=== PATIENT | male | born 1995 | race Caucasian/White ===

== ENCOUNTER → 2016-09-28 | Outpatient (CLI) | payer BC ==
--- NOTE | 2016-09-28 10:00 | RAD ---
HISTORY: Neck pain Study: Cervical spine three view Comparison: None Findings: The prevertebral soft tissues are normal. The alignment is normal. The vertebral bodies are of avera ge height. The disc spaces are preserved. The posterior elements are intact. The joints are normal. IMPRESSION: No significant abnormality Reported By:
--- NOTE | 2016-09-28 10:02 | RAD ---
HISTORY: Back pain Study: Lumbar spine three view Comparison: None Findings: There appears to be slight anterolisthesis L5 on S1 which could be due to bilateral spondylolysis at L5. This could be confirmed with CT. The alignment is otherwise normal. The vertebral bodies are of average height. The disc spaces are preserved. The pedicles are intact. The SI joints are normal. IMPRESSION: Slight anterolisthesis L5 on S1 possibly due to bilateral spondylolysis at L5. This could be confirm ed with CT. Reported By:
--- NOTE | 2016-09-28 10:05 | RAD ---
HISTORY: Back pain, scoliosis Study: AP and lateral thoracic spine Comparison: None Findings: There is minimal dextroscoliosis convex T6-7. The alignment is otherwise normal. The vertebral elizabeth s are of average height. The disc spaces are preserved. The pedicles are intact. The paraspinous sof t tissues are normal. IMPRESSION: Minimal dextroscoliosis Reported By:
== END | disposition home or self-care (01) ==
LOC: RAD 08:45
PROVIDERS: ATTEND Nurse Practitioner Family
DX: M54.89 Other dorsalgia (principal); M41.84 Other forms of scoliosis, thoracic region; M43.17 Spondylolisthesis, lumbosacral region
CPT/HCPCS: 72040; 72072; 72100

== ENCOUNTER 2016-10-05 01:19 | Emergency (ER) | payer BC ==
[2016-10-05 01:26] VITALS: BP 132/77; BMI 21.8
--- NOTE | 2016-10-05 01:50 | DR.GENAD ---
HPI - PCP Primary Care Physician: EAN - HPI Comment HPI Comment: PAIN WORSE TONIGHT. NO DYSURIA. NO FEVER. NO N/V/D. - Complaint/Symptoms Chief Complaint Doctors Comments: PAIN LOWER BACK AND RIGHT GROIN FOR ONE WEEK. Chief Complaint:: PAIN IN STOMACH LOW BACK AND GROIN - Nurses notes reviewed Nurses Notes Review: Yes - Source History Provided: Patient - Mode of Arrival Mode of Arrival: Ambulatory - Timing Onset of Chief Complaint: 09/28/16 Came on: Suddenly - Duration Duration: Constant Duration: Days - Severity Severity: Moderate PMH - PMH Past Medical History: No Past Surgical History: Yes Surgical History: Ortho Surgery Past Surgical History Comment: KNEE AND SHOULDER - Family History History of Family Medical Conditions: Yes Family Medical History: Hypertension - Social History Does patient currently use any type of tobacco product: No Have you used tobacco products in the last 12 months: No Type of Tobacco Use: None Does any household member use tobacco: No Alcohol Use: None Do you use any recreational Drugs:: No Lives With: Family Lives Where: Home - infectious screening In the last 2 months have you had wt loss of >10#?: NO Have you had fever, night sweats or hemotysis?: No Have you traveled outside the country in the last 6 months?: No Isolation: Standard ROS - Review of Systems Constitutional: No Symptoms Reported. negative: Chills, Fever, Weakness, Fatigue Eyes: No Symptoms Reported. negative: Eye Pain, Discharge ENTM: No Symptoms Reported. negative: Ear Pain, Nose Discharge, Nose Congestion , Throat Pain Respiratoy: No Symptoms Reported. negative: Productive Cough, Short of Breath, Wheezing, Hemoptysis Cardiovascular: No Symptoms Reported. negative: Chest Pain Gastrointestinal/Abdominal: Abdominal Pain. negative: Diarrhea, Nausea, Vomiting Genitourinary: negative: Dysuria, Hematuria Neurological: No Symptoms Reported. negative: Headache, Weakness, Dizziness Musculoskeletal: Muscle Pain Integumentary: No Symptoms Reported. negative: Change in Color Hematologic/Lymphatic: No Symptoms Reported Endocrine: No Symptoms Reported All Other Systems: Reviewed and Negative PE - Vital Signs Vitals: Temperature 98.9 F Pulse Rate 73 Respiratory Rate 16 Blood Pressure 132/77 O2 Sat by Pulse Oximetry 99 - General Limitations: No Limitations General Appearance: Alert - Head Head Exam: Normal Inspection - Eyes Eye exam: Normal Appearance - ENT ENT Exam: Normal External Ear Exam External Ear Exam: Normal External Inspection TM/Canal Exam: Bilateral Normal Nose Exam: Normal Nose Exam, Sinus Tenderness Mouth Exam: Normal Inspection Throat Exam: Normal Inspection - Neck Neck Exam: Trachea Midline - Chest Chest Inspection: Symmetric Chest Wall Rise - Respiratory Respiratory Exam: Normal Lung Sounds Bilat Respiratory Exam: Bilateral Clear to Auscultation - Cardiovascular Cardiovascular Exam: Regular Rate, Normal Rhythm, Normal Heart Sounds - Abdominal Exam Abdominal Exam: Normal Bowel Sounds, Soft, Tenderness. negative: Distention - Extremities Extremities Exam: Normal Inspection - Back Back Exam: Normal Inspection - Neurologic Neurological Exam: Alert, Oriented X3 - Psychiatric Psychiatric Exam: Normal Affect, Normal Mood - Skin Skin Exam: Normal Color MDM - Additional Information Additional Information Obtained From: Family - Differential Diagnosis Differential Diagnosis: UTI, KIDNEY STONE Course - Treatment Treatment: SEE ORDERS. - Education/Counseling Education/Counseling: Patient, Family, Education Educated On: Diagnosis, Needs for Follow Up ROR - Labs Reviewed Laboratory Results Reviewed?: Yes Laboratory: Specimen Type Clean catch urine 10/05/16 02:05 Urine Color Yellow (YELLOW) 10/05/16 02:05 Urine Appearance Clear (CLEAR) 10/05/16 02:05 Urine pH 5.0 (5.0 - 8.0) 10/05/16 02:05 Ur Specific [place] 1.030 (1.000-1.030) 10/05/16 02:05 Urine Protein Negative (NEGATIVE) 10/05/16 02:05 Urine Glucose (UA) Negative (NEGATIVE) 10/05/16 02:05 Urine Ketones Negative (NEGATIVE) 10/05/16 02:05 Urine Occult Blood Negative (NEGATIVE) 10/05/16 02:05 Urine Nitrite Negative (NEGATIVE) 10/05/16 02:05 Urine Bilirubin Negative (NEGATIVE) 10/05/16 02:05 Urine Urobilinogen Normal (NORMAL) 10/05/16 02:05 Ur Leukocyte Esterase Negative (NEGATIVE) 10/05/16 02:05 Urine RBC None seen /HPF (NEGATIVE) 10/05/16 02:05 Urine WBC None seen /HPF (NEGATIVE) 10/05/16 02:05 Ur Squamous Epith Cells Rare /HPF (NEGATIVE) 10/05/16 02:05 Urine Bacteria Negative /HPF (NEGATIVE) 10/05/16 02:05 Ur Culture Indicated? No/not indicated 10/05/16 02:05 - Diagnosis Discharge Problem: Right groin pain Lower back pain Qualifiers: Chronicity: acute Back pain laterality: bilateral Sciatica presence: without sciatica Qualified Code(s): M54.5 - Low back pain - Discharge Plan Condition: Stable Prescriptions: Ibuprofen [Motrin Tab 800 mg] 800 mg PO Q8H PRN #20 tab PRN Reason: Pain/Inflammation - Follow ups/Referrals Follow ups/Referrals: ALE MCKOY [Primary Care Provider] - 1 day - Instructions Instructions: Back Pain, Adult, [id number], Groin Strain Additional Instructions: RETURN TO ED IF WORSE.
[2016-10-05 02:10] LABS: BILIRUBIN,URINE NEGATIVE (NEGATIVE); BLOOD/HEMOGLOBIN,URINE NEGATIVE (NEGATIVE); GLUCOSE, URINE NEGATIVE (NEGATIVE); KETONES,URINE NEGATIVE (NEGATIVE); LEUKOCYTE ESTERASE ,URINE NEGATIVE (NEGATIVE); NITRITES,URINE NEGATIVE (NEGATIVE); PROTEIN,URINE NEGATIVE (NEGATIVE); UROBILINOGEN,URINE NORMAL (NORMAL)
[2016-10-05 02:18] LABS: APPEARANCE,URINE CLEAR (CLEAR); BACTERIA,URINE NEGATIVE /HPF (NEGATIVE); COLOR,URINE YELLOW (YELLOW); RBC,URINE NONE SEEN /HPF (NEGATIVE); SQUAMOUS EPITHELIAL CELL,UR RARE /HPF (NEGATIVE)
--- NOTE | 2016-10-05 03:15 | CT ---
CT abdomen and pelvis without contrast Indication: Lower back pain stomach pain groin pain. Technique: Helical images through the abdomen and pelvis without contrast. Coronal and sagittal refo rmats provided. Findings: Limited images through lower chest shows no acute abnormality. Review of bone windows show s no destructive osseous lesion. Lower lumbar spine degenerative changes noted with pars defects at L5 with slight anterolisthesis of L5 on S1. Abdomen: Within limits of a noncontrast study, the stomach, gallbladder, liver, spleen, pancreas, ad renal glands and small bowel show no acute abnormality. Moderate stool seen in the colon. The append ix is normal. No acute colonic abnormality seen. Vasculature is free of plaque. The kidneys show no stone or hydroureteronephrosis. Pelvis: Urinary bladder and rectum show no acute abnormality. Prostate gland is normal. Impression: 1. No renal stone or hydronephrosis. 2. Moderate stool in the colon suggesting constipation. 3. Pars defects at L5. Reported By:
[2016-10-05] MEDS ORDERED: TORADOL TAB PO ONE ×2 (03:30→03:32)
== END 2016-10-05 03:35 | disposition home or self-care (01) ==
LOC: ER 01:19
DX: R10.84 Generalized abdominal pain (principal); M54.5 Low back pain
CPT/HCPCS: 74176; 81001; 99282

== ENCOUNTER 2017-12-23 22:32 | Observation (INO) ==
[2017-12-23] MEDS ORDERED: ASPIRIN PO ONE (23:14)
[2017-12-23] MEDS ORDERED: ASPIRIN ONE (23:19)
--- NOTE | 2017-12-23 23:33 | RAD ---
AP chest. Indication: Chest pain with numbness Findings: The heart size is normal. Trachea is midline. No focal airspace opacity, pleural effusion o r pneumothorax. No acute osseous abnormality. Impression: No acute cardiopulmonary abnormality or change from prior exam. Reported By:
[2017-12-23 23:41] LABS: BASOPHILS # (AUTO) 0.1 X10^3/uL (0.0-0.1); BASOPHILS % (AUTO) 1.2 % (0.2-1.0); EOSINOPHILS # (AUTO) 0.4 x10^3/uL (0.0-0.2); EOSINOPHILS % (AUTO) 5.8 % (0.9-2.9); HEMATOCRIT 44.1 % (42.0-54.0); HEMOGLOBIN 15.1 g/dL (13.5-18.0); LYMPHOCYTES # (AUTO) 3.6 X10^3/uL (1.3-2.9); LYMPHOCYTES % (AUTO) 48.9 % (21.0-51.0); MEAN CORPUSCULAR HEMOGLOBIN 30.4 pg (27.0-34.0); MEAN CORPUSCULAR HGB CONC 34.2 g/dL (33.0-35.0); MEAN PLATELET VOLUME 8.3 fL (7.4-11.0); MONOCYTES # (AUTO) 0.7 x10^3/uL (0.3-0.8); MONOCYTES % (AUTO) 9.2 % (0.0-13.0); NEUTROPHILS # (AUTO) 2.6 x10^3/uL (2.2-4.8); NEUTROPHILS % (AUTO) 34.9 % (42.0-75.0); PLATELET COUNT 236 X10^3/uL (150.0-450.0); RED BLOOD COUNT 4.96 X10^6/uL (4.7-6.0); WHITE BLOOD COUNT 7.3 X10^3/uL (3.6-10.0)
[2017-12-23 23:59] LABS: BLOOD UREA NITROGEN 12 mg/dL (7-18); CALCIUM 8.7 mg/dL (8.5-10.1); CARBON DIOXIDE 28.2 mmol/L (21-32); CHLORIDE 105 mmol/L (98-107); CREATININE 0.96 mg/dL (0.70-1.30); SODIUM 141 mmol/L (136-145); TROPONIN I < 0.02 ng/mL (0-1.5); eGFR NON BLACK RACES > 60 (>60)
[2017-12-24 00:03] LABS: ALANINE AMINOTRANSFERASE 26 Units/L (12-78); ALBUMIN 3.8 g/dL (3.4-5.0); ALKALINE PHOSPHATASE 82 Units/L (46-116); ASPARTATE AMINO TRANSFERASE 16 Units/L (15-37); CKMB % 1.1 % (<4); CREATINE KINASE 141 Units/L (39-308); CREATINE KINASE MB 1.5 ng/mL (0-4.0); MAGNESIUM 1.9 mg/dL (1.7-2.9); TOTAL PROTEIN 7.2 g/dL (6.4-8.2)
--- NOTE | 2017-12-24 00:14 | DR.CP ---
HPI Time Seen Time seen: 23:20 PCP Primary Care Physician: ALE MCKOY Complaint Chief Complaint Doctor Comments: A agree with statement as written. Patient admits to left sided chest pain for the past couple of months. The present pain has a duration of two hours with radiating down left arm w/o diaphoresis. Pain score is 8. His job consist of making wiring harnesses. He denies smoking or use of alcohol. Negative family history of heart disease. Chief Complaint:: LEFT SIDED CHEST PAIN, LEFT ARM NUMBNESS O/S 2200. PATIENT STATES, "I HAVE BEEN HAVING CHEST PAIN FOR THE LAST COUPLE OF MONTHS." I INQUIRED IF HE HAS SEEN PCP, "NO." I INQUIRED WHY IS THE CHEST PAIN DIFFERENT TONIGHT? "BC MY LEFT ARM WENT NUMB." PATIENT ADMITS TO CHEST PAIN WITH INSPIRATION. PATIENT TENDER PER PALPITATION OF CHEST WALL. PATIENT ADMITS TO C/C /C FOR LAST 3 DAYS. PATIENT DENIES ANY SOB, N/V. Self Treatment fo Chief Complaint: NONE Source History Provided: Patient Mode of Arrival Mode of Arrival: Ambulatory Timing Onset of Chief Complaint: 12/23/17 Location Chest Pain Radiation Location: Left Arm Associated Signs and Symptoms Associated Signs and Symptoms: Other PMH PMH Past Medical History: No Past Surgical History: Yes Surgical History: Ortho Surgery Past Surgical History Comment: ORTHO SURGERY RT SHOULDER, LT KNEE Family History History of Family Medical Conditions: Yes Family Medical History: Hypertension Social History Does patient currently use any type of tobacco product: No Have you used tobacco products in the last 12 months: No Type of Tobacco Use: None Does any household member use tobacco: No Alcohol Use: None Do you use any recreational Drugs:: No Lives Where: Home infectious screening Have you traveled outside the country in the last 6 months?: No Isolation: Standard ROS Review of Systems Constitutional: negative Diaphoresis, Fever, Weakness and Fatigue ENTM: No Symptoms Reported and See HPI; negative Ear Discharge and Nose Pain Respiratoy: No Symptoms Reported and See HPI; negative Non-Productive Cough and Orthopnea Cardiovascular: See HPI; negative Edema and Cyanosis Gastrointestinal/Abdominal: No Symptoms Reported; negative Constipation and Vomiting Genitourinary: No Symptoms Reported Neurological: No Symptoms Reported and Numbness (left upper extremity tonight); negative Seizure, Tingling and Speech Problem Musculoskeletal: See HPI and Chest wall (upper chest wall tenderness to palpation); negative Shoulder and Forearm All Other Systems: Reviewed and Negative PE Vitals Vitals: Temperature 98.1 F Pulse Rate [Apical] 52 Pulse Rate 62 Respiratory Rate 15 Blood Pressure [Left Arm] 120/76 Blood Pressure 126/71 O2 Sat by Pulse Oximetry 99 General Limitations: No Limitations General Appearance: Alert and In No Apparent Distress; negative Anxious and In Distress Head Head Exam: Normal Inspection; negative Atraumatic Eyes Eye exam: Normal Appearance, PERRL and EOMI ENT ENT Exam: Normal Exam, Normal Oropharynx, Normal External Ear Exam, Mucous Membranes Moist and TM's Normal Bilaterally Chest Chest Inspection: Normal Inspection, Symmetric Chest Wall Rise and Tenderness ( anterior upper chest to palpation); negative Rash Respiratory Respiratory Exam: Normal Lung Sounds Bilat and Chest Wall Tenderness (anterior chest wall); negative Accessory Muscle Use and Prolonged Expiratory Phase Respiratory Exam: Bilateral: Clear to Auscultation Cardiovascular Cardiovascular Exam: Regular Rate and Normal Rhythm Pulse: Normal Edema: Normal Abdominal Exam Abdominal Exam: Normal Inspection, Normal Bowel Sounds, Soft, Hyperactive Bowel Sounds, Incision, Bruit and Other; negative Distention, Tenderness, Guarding, Rebound, Rigidity, Dimnished Bowel Sounds, Hypoactive Bowel Sounds, Organomegaly , Trauma, Ascites, Mass, Pulsatile Mass and Hernia Abdominal Tenderness: negative RUQ, RLQ, LUQ, LLQ, Epigastrium, Suprapubic, Diffuse, Mild, Moderate, Severe and Other Extremities Extremities Exam: Normal Inspection, Full ROM and Normal Capillary Refill Back Back Exam: Normal Inspection and Full ROM; negative Tenderness Neurologic Neurological Exam: Alert, Oriented X3, CN II-XII Intact, Normal Gait and Reflexes Normal; negative Motor Sensory Deficit Psychiatric Psychiatric Exam: Normal Affect and Normal Mood Skin Skin Exam: Warm and Normal Color; negative Diaphoresis ROR Labs Reviewed Result Diagrams: 12/23/17 23:27 12/23/17 23:27 Laboratory: WBC 7.3 X10^3/uL (3.6-10.0) 12/23/17 23: RBC 4.96 X10^6/uL (4.7-6.0) 12/23/17 23: Hgb 15.1 g/dL (13.5-18.0) 12/23/17 23: Hct 44.1 % (42.0-54.0) 12/23/17 23: MCV 89.0 fL (80.0-100.0) 12/23/17: MCH 30.4 pg (27.0-34.0) 12/23/17: MCHC 34.2 g/dL (33.0-35.0) 12/23/17: RDW 13.0 % (11.6-16.5) 12/23/17 Plt Count 236 X10^3/uL (150.0-450.0) 12/23/17 MPV 8.3 fL (7.4-11.0) 12/23/17: Neut % (Auto) 34.9 % (42.0-75.0) L 12/23/17: Lymph % (Auto) 48.9 % (21.0-51.0) 12/23/17 [place] % (Auto) 9.2 % (0.0-13.0) 12/23/17 Eos % (Auto) 5.8 % (0.9-2.9) H 12/23/17: Baso % (Auto) 1.2 % (0.2-1.0) H 12/23/17: Neut # (Auto) 2.6 x10^3/uL (2.2-4.8) 12/23/17: Lymph # (Auto) 3.6 X10^3/uL (1.3-2.9) H 12/23/17: [place] # (Auto) 0.7 x10^3/uL (0.3-0.8) 12/23/17 Eos # (Auto) 0.4 x10^3/uL (0.0-0.2) H 12/23/17: Baso # (Auto) 0.1 X10^3/uL (0.0-0.1) 12/23/17 Absolute Nucleated RBC 0.1 /100WBC 12/23/17 INR Target Range - 12/23/17 INR 1.06 (0.8-1.3) 12/23/17 APTT 33.3 SECONDS (22.9-36.5) 12/23/17 23:27 PTT Comment - 12/23/17 23:27
[2017-12-24 00:30] LABS: BILIRUBIN,URINE NEGATIVE (NEGATIVE); BLOOD/HEMOGLOBIN,URINE NEGATIVE (NEGATIVE); GLUCOSE, URINE NEGATIVE (NEGATIVE); KETONES,URINE NEGATIVE (NEGATIVE); LEUKOCYTE ESTERASE ,URINE NEGATIVE (NEGATIVE); NITRITES,URINE NEGATIVE (NEGATIVE); PROTEIN,URINE NEGATIVE (NEGATIVE); UROBILINOGEN,URINE NORMAL (NORMAL)
[2017-12-24 00:36] LABS: APPEARANCE,URINE CLEAR (CLEAR); COLOR,URINE YELLOW (YELLOW)
[2017-12-24] MEDS ORDERED: NS 1000 ML 1,000 ML IV SCH (02:00)
[2017-12-24 03:33] LABS: BASOPHILS # (AUTO) 0.1 X10^3/uL (0.0-0.1); BASOPHILS % (AUTO) 0.8 % (0.2-1.0); EOSINOPHILS # (AUTO) 0.3 x10^3/uL (0.0-0.2); EOSINOPHILS % (AUTO) 4.2 % (0.9-2.9); HEMOGLOBIN 15.1 g/dL (13.5-18.0); LYMPHOCYTES # (AUTO) 2.5 X10^3/uL (1.3-2.9); LYMPHOCYTES % (AUTO) 30.8 % (21.0-51.0); MEAN CORPUSCULAR HEMOGLOBIN 30.7 pg (27.0-34.0); MEAN CORPUSCULAR HGB CONC 34.4 g/dL (33.0-35.0); MEAN CORPUSCULAR VOLUME 89.2 fL (80.0-100.0); MEAN PLATELET VOLUME 8.5 fL (7.4-11.0); MONOCYTES # (AUTO) 0.5 x10^3/uL (0.3-0.8); MONOCYTES % (AUTO) 5.7 % (0.0-13.0); NEUTROPHILS # (AUTO) 4.8 x10^3/uL (2.2-4.8); NEUTROPHILS % (AUTO) 58.5 % (42.0-75.0); PLATELET COUNT 213 X10^3/uL (150.0-450.0); RED BLOOD COUNT 4.92 X10^6/uL (4.7-6.0); RED CELL DISTRIBUTION WIDTH 12.9 % (11.6-16.5); WHITE BLOOD COUNT 8.2 X10^3/uL (3.6-10.0)
[2017-12-24 03:45] VITALS: BMI 21.3
[2017-12-24 03:45] LABS: ALANINE AMINOTRANSFERASE 25 Units/L (12-78); ALBUMIN 3.7 g/dL (3.4-5.0); ALKALINE PHOSPHATASE 78 Units/L (46-116); ASPARTATE AMINO TRANSFERASE 19 Units/L (15-37); BLOOD UREA NITROGEN 14 mg/dL (7-18); CALCIUM 8.7 mg/dL (8.5-10.1); CARBON DIOXIDE 29.2 mmol/L (21-32); CHLORIDE 105 mmol/L (98-107); CREATININE 0.98 mg/dL (0.70-1.30); SODIUM 140 mmol/L (136-145); eGFR NON BLACK RACES > 60 (>60)
[2017-12-24 03:58] LABS: CHOL/HDL RATIO 2.9 (0.0-5.0); CHOLESTEROL 136 mg/dL (0-200); CKMB % 1.3 % (<4); CREATINE KINASE 112 Units/L (39-308); CREATINE KINASE MB 1.5 ng/mL (0-4.0); HDL CHOLESTEROL 47 mg/dL (40-60); TRIGLYCERIDES 46 mg/dL (0-150); TROPONIN I < 0.02 ng/mL (0-1.5)
[2017-12-24 08:07] LABS: CKMB % 1.6 % (<4); CREATINE KINASE 94 Units/L (39-308); CREATINE KINASE MB 1.5 ng/mL (0-4.0); TROPONIN I < 0.02 ng/mL (0-1.5)
[2017-12-24 08:39] VITALS: BP 114/65
--- NOTE | 2018-01-26 11:55 | DR.CP ---
HPI Time Seen Time seen: 22:50 PCP Primary Care Physician: SHELDON Anand Complaint Chief Complaint:: LEFT SIDED CHEST PAIN, LEFT ARM NUMBNESS O/S 0. PATIENT STATES, "I HAVE BEEN HAVING CHEST PAIN FOR THE LAST COUPLE OF MONTHS." I INQUIRED IF HE HAS SEEN PCP, "NO." I INQUIRED WHY IS THE CHEST PAIN DIFFERENT TONIGHT? "BC MY LEFT ARM WENT NUMB." PATIENT ADMITS TO CHEST PAIN WITH INSPIRATION. PATIENT TENDER PER PALPITATION OF CHEST WALL. PATIENT ADMITS TO C/C /C FOR LAST 3 DAYS. PATIENT DENIES ANY SOB, N/V. Self Treatment fo Chief Complaint: NONE Source History Provided: Patient Mode of Arrival Mode of Arrival: Ambulatory Timing Onset of Chief Complaint: 12/23/17 Location Chest Pain Radiation Location: Left Arm Associated Signs and Symptoms Associated Signs and Symptoms: Other PMH PMH Past Medical History: No Past Surgical History: Yes Surgical History: Ortho Surgery Past Surgical History Comment: ORTHO SURGERY RT SHOULDER, LT KNEE Family History History of Family Medical Conditions: Yes Family Medical History: Hypertension Social History Does patient currently use any type of tobacco product: No Have you used tobacco products in the last 12 months: No Type of Tobacco Use: None Does any household member use tobacco: No Alcohol Use: None Do you use any recreational Drugs:: No Lives With: Spouse Lives Where: Home infectious screening Have you traveled outside the country in the last 6 months?: No Isolation: Standard PE Vitals Vitals: Temperature 97.7 F Pulse Rate [Apical] 69 Pulse Rate 62 Respiratory Rate 18 Blood Pressure [Left Arm] 114/65 Blood Pressure 126/71 O2 Sat by Pulse Oximetry 98 General Limitations: No Limitations General Appearance: Alert and In No Apparent Distress Head Head Exam: Normal Inspection and Atraumatic Eyes Eye exam: Normal Appearance, PERRL and EOMI ENT ENT Exam: Normal Exam and Normal Oropharynx Chest Chest Inspection: Normal Inspection, Symmetric Chest Wall Rise and Tenderness ( tenderness to palpation) Respiratory Respiratory Exam: Normal Lung Sounds Bilat Respiratory Exam: Bilateral: Clear to Auscultation Cardiovascular Cardiovascular Exam: Regular Rate and Normal Rhythm Abdominal Exam Abdominal Exam: Normal Inspection, Normal Bowel Sounds and Soft; negative Distention, Tenderness, Guarding and Trauma Abdominal Tenderness: negative RUQ, RLQ, LUQ, LLQ and Epigastrium Extremities Extremities Exam: Normal Inspection, Full ROM and Normal Capillary Refill Back Back Exam: Normal Inspection and Full ROM; negative (R) CVA Tenderness, (L) CVA Tenderness and Muscle Spasm Neurologic Neurological Exam: Alert, Oriented X3 and CN II-XII Intact Psychiatric Psychiatric Exam: Normal Affect and Normal Mood Skin Skin Exam: Warm, Dry, Intact and Normal Color; negative Rash COURSE Reevaluation 1st: Unchanged ROR Labs Reviewed Result Diagrams: 12/24/17 03:16 12/24/17 03:16 Laboratory: WBC 8.2 X10^3/uL (3.6-10.0) 12/24/17 03:16 RBC 4.92 X10^6/uL (4.7-6.0) 12/24/17 03:16 Hgb 15.1 g/dL (13.5-18.0) 12/24/17 03:16 Hct 44.0 % (42.0-54.0) 12/24/17 03:16 MCV 89.2 fL (80.0-100.0) 12/24/17 03:16 MCH 30.7 pg (27.0-34.0) 12/24/17 03:16 MCHC 34.4 g/dL (33.0-35.0) 12/24/17 03:16 RDW 12.9 % (11.6-16.5) 12/24/17 03:16 Plt Count 213 X10^3/uL (150.0-450.0) 12/24/17 03:16 MPV 8.5 fL (7.4-11.0) 12/24/17 03:16 Neut % (Auto) 58.5 % (42.0-75.0) 12/24/17 03:16 Lymph % (Auto) 30.8 % (21.0-51.0) 12/24/17 03:16 [place] % (Auto) 5.7 % (0.0-13.0) 12/24/17 03:16 Eos % (Auto) 4.2 % (0.9-2.9) H 12/24/17 03:16 Baso % (Auto) 0.8 % (0.2-1.0) 12/24/17 03:16 Neut # (Auto) 4.8 x10^3/uL (2.2-4.8) 12/24/17 03:16 Lymph # (Auto) 2.5 X10^3/uL (1.3-2.9) 12/24/17 03:16 [place] # (Auto) 0.5 x10^3/uL (0.3-0.8) 12/24/17 03:16 Eos # (Auto) 0.3 x10^3/uL (0.0-0.2) H 12/24/17 03:16 Baso # (Auto) 0.1 X10^3/uL (0.0-0.1) 12/24/17 03:16 Absolute Nucleated RBC 0.0 /100WBC 12/24/17 03:16 INR Target Range - 12/23/17 23:27 INR 1.06 (0.8-1.3) 12/23/17 23:27 APTT 33.3 SECONDS (22.9-36.5) 12/23/17 23:27 PTT Comment - 12/23/17 23:27 Sodium 140 mmol/L (136-145) 12/24/17 03:16 Corrected Sodium TNP 12/24/17 03:16 Potassium 3.6 mmol/L (3.5-5.1) 12/24/17 03:16 Chloride 105 mmol/L (98-107) 12/24/17 03:16 Carbon Dioxide 29.2 mmol/L (21-32) 12/24/17 03:16 BUN 14 mg/dL (7-18) 12/24/17 03:16 Creatinine 0.98 mg/dL (0.70-1.30) 12/24/17 03:16 Est GFR (MDRD) Af Amer > 60 (>60) 12/24/17 03:16 Est GFR (MDRD) Non-Af > 60 (>60) 12/24/17 03:16 Glucose 96 mg/dL (65-99) 12/24/17 03:16 Calcium 8.7 mg/dL (8.5-10.1) 12/24/17 03:16 Corrected Calcium TNP 12/24/17 03:16 Magnesium 1.9 mg/dL (1.7-2.9) 12/23/17 23:27 Total Bilirubin 0.40 mg/dL (0.2-1.0) 12/24/17 03:16 AST 19 Units/L (15-37) 12/24/17 03:16 ALT 25 Units/L (12-78) 12/24/17 03:16 Alkaline Phosphatase 78 Units/L (46-116) 12/24/17 03:16 Creatine Kinase 94 Units/L (39-308) 12/24/17 07:28 CK-MB (CK-2) 1.5 ng/mL (0-4.0) 12/24/17 07:28 CK/CKMB % Calc 1.6 % (<4) 12/24/17 07:28 Troponin I < 0.02 ng/mL (0-1.5) 12/24/17 07:28 Total Protein 7.0 g/dL (6.4-8.2) 12/24/17 03:16 Albumin 3.7 g/dL (3.4-5.0) 12/24/17 03:16 Globulin 3.3 g/dL (2.5-4.5) 12/24/17 03:16 Albumin/Globulin Ratio 1.1 Ratio (1.1-2.1) 12/24/17 03:16 Triglycerides 46 mg/dL (0-150) 12/24/17 03:16 Cholesterol 136 mg/dL (0-200) 12/24/17 03:16 LDL Cholesterol, Calc 80 mg/dL (0-100) 12/24/17 03:16 HDL Cholesterol 47 mg/dL (40-60) 12/24/17 03:16 Cholesterol/HDL Ratio 2.9 (0.0-5.0) 12/24/17 03:16 Specimen Type Clean catch urine 12/24/17 00:17 Urine Color Yellow (YELLOW) 12/24/17 00:17 Urine Appearance Clear (CLEAR) 12/24/17 00:17 Urine pH 5.0 (5.0 - 8.0) 12/24/17 00:17 Ur Specific [place] 1.025 (1.000-1.030) 12/24/17 00:17 Urine Protein Negative (NEGATIVE) 12/24/17 00:17 Urine Glucose (UA) Negative (NEGATIVE) 12/24/17 00:17 Urine Ketones Negative (NEGATIVE) 12/24/17 00:17 Urine Occult Blood Negative (NEGATIVE) 12/24/17 00:17 Urine Nitrite Negative (NEGATIVE) 12/24/17 00:17 Urine Bilirubin Negative (NEGATIVE) 12/24/17 00:17 Urine Urobilinogen Normal (NORMAL) 12/24/17 00:17 Ur Leukocyte Esterase Negative (NEGATIVE) 12/24/17 00:17 Urine Opiates Screen Negative (NEG=<300) 12/23/17 00:17 Urine Methadone Screen Negative (NEG=<300) 12/23/17 00:17 Ur Barbiturates Screen Negative (NEG=<200) 12/23/17 00:17 Ur Phencyclidine Scrn Negative (NEG=<25) 12/23/17 00:17 Ur Amphetamines Screen Negative (NEG=<1000) 12/23/17 00:17 U Benzodiazepines Scrn Negative (NEG=<200) 12/23/17 00:17 Urine Cocaine Screen Negative (NEG=<300) 12/23/17 00:17 U Marijuana (THC) Screen Negative (NEG=<50) 12/23/17 00:17 XRAY XRAY Findings: chest: negative Diagnosis Discharge Problem: Chest pain Instructions Instructions: Acute Pain, Adult Chest Pain Observation Forms: Patient Portal
== END 2017-12-24 11:05 | disposition home or self-care (01) ==
LOC: MED/SURG 22:34 → ER 22:34 → MED/SURG 12-24 02:15
PROVIDERS: ADMIT Obstetrics & Gynecology Obstetrics; ATTEND Internal Medicine
DX: R20.0 Anesthesia of skin; M94.0 Chondrocostal junction syndrome [Tietze]; R07.89 Other chest pain; M79.602 Pain in left arm
CPT/HCPCS: 36415; 71010; 71045; 80053; 80061; 80307; 81003; 82550; 82553; 83735; 84484; 85025; 85610; 85730; 93005; 93010; 96365; 99284; A4216; A4222; G0378; G0434; J7030